=== PATIENT | female | born 1960 | race Caucasian/White ===

== ENCOUNTER 2016-10-27 07:52 | Day surgery (SDC) | payer OTHER ==
[2016-10-26 13:48] VITALS: BMI 35.4
[2016-10-27] MEDS ORDERED: PROPOFOL 20 ML ONE (09:28)
[2016-10-27 11:03] VITALS: TEMP 97.5
[2016-10-27 11:16] VITALS: PULSE 42
[2016-10-27 11:50] VITALS: BP 121/84
--- NOTE | 2016-10-28 13:49 | PATH ---
Surgical Pathology Report Patient Name: MELODY SANFORD [facility]. Rec. #: [id number] /Age/Gender: 1960 (Age: 56) / F Account: [id number] Location: ASU-ENDOSCOPY Taken: 10/27/2016 Received: 10/27/2016 Reported: 10/28/2016 Physicians: Godfrey Freire D.O. Specimen(s) Received A: TRANSVERSE COLON POLYP B: CECAL POLYP #1 C: BX CECAL POLYP #2 D: BX RECTAL POLYP Clinical History History of colon polyps Hemorrhoids, polyps, diverticulosis Final Diagnosis A. COLON, TRANSVERSE, POLYP, POLYPECTOMY: POLYPOID FRAGMENT OF COLONIC MUCOSA WITH SURFACE HYPERPLASTIC CHANGE AND CAUTERY ARTIFACT. B. COLON, CECUM, POLYP #1, POLYPECTOMY: FRAGMENTS OF TUBULAR ADENOMA. C. COLON, CECUM, POLYP #2, BIOPSY: POLYPOID FRAGMENT OF COLONIC MUCOSA WITH SURFACE HYPERPLASTIC CHANGE D. RECTUM, POLYP, BIOPSY: FRAGMENTS OF HYPERPLASTIC POLYP. Electronically Signed Nish Molina M.D. Gross Description A. Received in formalin, labeled "transverse colon polyp" is a fiore, irregular portion of soft tissue measuring 0.3 cm in greatest dimension. The specimen is submitted in toto in one cassette. B. Received in formalin, labeled "cecal polyp" are 4 fiore, irregular portions of soft tissue ranging from 0.1-0.3 cm in greatest dimension. The specimens are submitted in toto in one cassette. C. Received in formalin, labeled "biopsy cecal polyp #2" is a fiore, irregular portion of soft tissue measuring 0.5 cm in greatest dimension. The specimen is submitted in toto in one cassette. D. Received in formalin, labeled "rectal polyp biopsy" is a fiore, irregular portion of soft tissue measuring 0.4 cm in greatest dimension. The specimen is submitted in toto in one cassette. DL/10/27/2016 saudi/10/27/2016
== END 2016-10-27 11:50 | disposition home or self-care (01) ==
LOC: JASU-ENDO 07:52
PROVIDERS: ATTEND Internal Medicine Gastroenterology
PROC: 0DBN8ZX Excision of Sigmoid Colon, Via Natural or Artificial Opening Endoscopic, Diagnostic (ICD-10-PCS; 2016-10-27)
PROC: 0DBN8ZX Excision of Sigmoid Colon, Via Natural or Artificial Opening Endoscopic, Diagnostic (ICD-10-PCS; 2016-10-27)
PROC: 0DBP8ZX Excision of Rectum, Via Natural or Artificial Opening Endoscopic, Diagnostic (ICD-10-PCS; 2016-10-27)
PROC: 0DBL8ZX Excision of Transverse Colon, Via Natural or Artificial Opening Endoscopic, Diagnostic (ICD-10-PCS; principal; 2016-10-27 10:00)
DX: Z86.010 Personal history of colon polyps (principal); D12.0 Benign neoplasm of cecum; D12.3 Benign neoplasm of transverse colon; D12.8 Benign neoplasm of rectum
CPT/HCPCS: 88305-TC

== ENCOUNTER 2018-06-15 06:03 | Emergency (ER) | payer OTHER ==
--- NOTE | 2018-06-15 06:10 | PDOC ---
History of Present Illness - General Chief Complaint: Injury Stated Complaint: FELL 3 DAYS AGO INJURING HER KNEES AND LEFT CALF Time Seen by Provider: 06/15/18 06:09 - History of Present Illness Initial Comments: 06/15/18 06:22 This 57-year-old woman with a history of HTN/gastric ulcer/GERD presents with a history of fall. 3 days ago, patient fell through a broken wooden panel in her front porch. Right lower leg fell through the opening and left lower leg flexed at the knee. Patient had no impact of head/neck or upper body. No LOC. Patient was helped up by a neighbor. She states that she was at bed rest for the first day and then has been up and around for the last 2 days. She applied cold followed by warm compresses to the areas that were injured. She has taken acetaminophen as well as naproxen for her pain (patient states that her doctor is aware that she takes naproxen with food as needed). Patient states for the last day her pain has worsened. The patient is s/p right knee replacement 3 years ago. Patient is light smoker (3-4 cigarettes every few days); no history of DVT in the past; no recent surgery or malignancy Past History - Past Medical History Allergies/Adverse Reactions: Allergies Allergy/AdvReac Type Severity Reaction Status Date / Time peanut [Peanut] Allergy Severe Hives Verified 06/15/18 06:07 Home Medications: Ambulatory Orders Lisinopril [Prinivil] 20 mg PO DAILY #0 tablet 04/04/13 Omeprazole 40 mg PO ASDIR PRN 07/07/16 Tramadol HCl 50 mg PO Q6H PRN #15 tablet MDD 4 06/15/18 Anemia: No Asthma: No (QUESTIONABLE) Cancer: No Cardiac Disorders: No CVA: No COPD: No CHF: No Dementia: No Diabetes: No GI Disorders: Yes (H/O BLEEDING ULCER) Disorders: No HTN: Yes Hypercholesterolemia: No Liver Disease: No Seizures: No Thyroid Disease: No - Surgical History Abdominal Surgery: No Appendectomy: No Cardiac Surgery: No Cholecystectomy: No Lung Surgery: No Neurologic Surgery: No Orthopedic Surgery: Yes (RIGHT TOTAL KNEE REPLACEMENT) - Immunization History Td Vaccination: Yes Immunization Up to Date: Yes - Suicide/Smoking/Psychosocial Hx Smoking Status: Yes Smoking History: Current some day smoker Have you smoked in the past 12 months: Yes Number of Cigarettes Smoked Daily: 0 If you are a former smoker, when did you quit?: 2008 'Breaking Loose' booklet given: 04/03/13 Hx Alcohol Use: Yes (SOCIALLY) Drug/Substance Use Hx: No Substance Use Type: Alcohol Hx Substance Use Treatment: No Review of Systems - Review of Systems Able to Perform ROS?: Yes Comments:: 12 point review of systems is negative except for what is noted in the history of present illness *Physical Exam - Physical Exam Comments: GENERAL: Adult female, alert and oriented 3, in mild distress secondary to bilateral lower extremity pain HEAD: Normal with no signs of trauma. NECK:No tenderness or masses LUNGS: Breath sounds equal, clear to auscultation bilaterally. No wheezes, and no crackles. HEART:Regular rate and rhythm, normal S1 and S2 without murmur, rub or gallop. ABDOMEN:.normal bowel sounds No guarding,tenderness or rebound.No masses No distention. EXTREMITIES: Right lower [id number] vertical incision mid knee; mild tenderness anteriorly, no deformity or ligamentous instability Moderate tenderness lateral aspect of tib-fib joint line Moderate ecchymosis medially with marked tenderness of the right popliteal and posterior lower leg/calf distal extremity nontender/ nonedematous Left lower extremity-moderate tenderness anteriorly of knee; no ligamentous instability or deformity noted Mild tenderness of the calf without masses or palpable cords distal extremity nontender/ nonedematous Remainder of the extremity exam is normal NEUROLOGICAL: Cranial nerves II through XII grossly intact. Normal speech. No focal neurological deficits. Medical Decision Making - Medical Decision Making Right knee/right tib-fib/left knee x-rays performed. Preliminary reading by me: Calcification of the medial soft tissue distal femoral area has been present in previous x-ray studies. Otherwise, no fracture or dislocation present in any of the studies. Right knee hardware appears to be intact. Because of the patient's marked tenderness and edema of the right popliteal/ calf areas and left calf area, and relative risk factors(smoking/immobilization) , Doppler duplex vascular study will be performed Case signed out to Dr Mcmillan at change of shift *DC/Admit/Observation/Transfer Diagnosis at time of Disposition: Contusion - Discharge Dispostion Disposition: HOME Condition at time of disposition: Improved - Prescriptions Prescriptions: Tramadol HCl 50 mg PO Q6H PRN #15 tablet MDD 4 PRN Reason: Pain - Referrals Referrals: Natalio Grimm MD [Staff Physician] - - Patient Instructions Printed Discharge Instructions: Contusion Additional Instructions: you can take tramadol one every 6 hrs as needed for pain. follow up with an orthopedist. you can see your orthopedist or call to see Dr Grimm see referral information for phone number. return for any numnbess weakness or any concerns. you dopplerof your leg was negative for a blood clot. your xray are negative for any new fracture. - Post Discharge Activity
[2018-06-15 06:13] VITALS: TEMP 97.5; BMI 36.6
--- NOTE | 2018-06-15 09:01 | PDOC ---
*Physical Exam - Vital Signs Last Vital Signs Temp Pulse Resp BP Pulse Ox 97.5 F L 73 16 131/91 99 06/15/18 06:08 06/15/18 06:08 06/15/18 06:08 06/15/18 06:08 06/15/18 06:08 - Physical Exam General Appearance: Yes: Nourished Medical Decision Making - Medical Decision Making 06/15/18 08:55 57-year-old female history of hypertension and signed out to me by Dr. Knox. Patient has a fall through a deck had ecchymosis and swelling to her leg is awaiting Doppler results. The preliminary result from attack is negative however awaiting official radiology read likely discharge patient home has follow-up with orthopedist in [facility] given CD of her x-ray report. DC home with prescription for tramadol 06/15/18 09:13 d/w dr white negative for dvt. no fluid collection in area of brusing. *DC/Admit/Observation/Transfer Diagnosis at time of Disposition: Contusion - Discharge Dispostion Disposition: HOME Condition at time of disposition: Improved - Prescriptions Prescriptions: Tramadol HCl 50 mg PO Q6H PRN #15 tablet MDD 4 PRN Reason: Pain - Referrals Referrals: Natalio Grimm MD [Staff Physician] - - Patient Instructions Printed Discharge Instructions: Contusion Additional Instructions: you can take tramadol one every 6 hrs as needed for pain. follow up with an orthopedist. you can see your orthopedist or call to see Dr Grimm see referral information for phone number. return for any numnbess weakness or any concerns. you dopplerof your leg was negative for a blood clot. your xray are negative for any new fracture. - Post Discharge Activity
[2018-06-15 09:23] VITALS: BP 126/84; PULSE 78
== END 2018-06-15 09:22 | disposition home or self-care (01) ==
LOC: FER 06:03
DX: S80.01XA Contusion of right knee, initial encounter (principal); S80.02XA Contusion of left knee, initial encounter; W13.3XXA Fall through floor, initial encounter; Y93.89 Activity, other specified; Y92.008 Other place in unspecified non-institutional (private) residence as the place of occurrence of the external cause; F17.210 Nicotine dependence, cigarettes, uncomplicated; I10 Essential (primary) hypertension; Z96.651 Presence of right artificial knee joint
CPT/HCPCS: 73560-TC-LT-FY; 73560-TC-RT-FY; 73590-TC-RT-FY; 93971-TC; 99282-25

== ENCOUNTER 2018-10-26 11:58 | Emergency (ER) | payer OTHER ==
[2018-10-26 12:13] VITALS: BP 137/91; PULSE 71; TEMP 98.7; BMI 34.3
[2018-10-26] MEDS ORDERED: ASPIRIN 81 MG CHEWABLE TABLETS PO ONE (12:18)
--- NOTE | 2018-10-26 12:18 | PDOC ---
History of Present Illness - General Chief Complaint: Chest Pain Stated Complaint: CHEST PAIN TO RIGHT SHOULDER Time Seen by Provider: 10/26/18 12:11 History Source: Patient Exam Limitations: No Limitations Past History - Past Medical History Allergies/Adverse Reactions: Allergies Allergy/AdvReac Type Severity Reaction Status Date / Time peanut [Peanut] Allergy Severe Difficulty Verified 10/26/18 12:00 Breathing Home Medications: Ambulatory Orders Lisinopril 30 mg PO DAILY 10/26/18 Naproxen [Naprosyn] 500 mg PO PRN 10/26/18 Omeprazole 20 mg PO DAILY 10/26/18 Anemia: No Asthma: No (QUESTIONABLE) Cancer: No Cardiac Disorders: No CVA: No COPD: No CHF: No Dementia: No Diabetes: No GI Disorders: Yes (H/O BLEEDING ULCER) Disorders: No HTN: Yes Hypercholesterolemia: No Liver Disease: No Seizures: No Thyroid Disease: No - Surgical History Abdominal Surgery: No Appendectomy: No Cardiac Surgery: No Cholecystectomy: No Lung Surgery: No Neurologic Surgery: No Orthopedic Surgery: Yes (RIGHT TOTAL KNEE REPLACEMENT) - Immunization History Td Vaccination: Yes Immunization Up to Date: Yes - Suicide/Smoking/Psychosocial Hx Smoking Status: Yes Smoking History: Current some day smoker Have you smoked in the past 12 months: Yes Number of Cigarettes Smoked Daily: 0 If you are a former smoker, when did you quit?: 2008 'Breaking Loose' booklet given: 04/03/13 Hx Alcohol Use: Yes (SOCIALLY) Drug/Substance Use Hx: No Substance Use Type: Alcohol Hx Substance Use Treatment: No Cardiac Specific PMH - Complaint Specific PMHX Pacemaker: No *Physical Exam - Vital Signs Last Vital Signs Temp Pulse Resp BP Pulse Ox 98.7 F 71 16 137/91 98 10/26/18 11:59 10/26/18 11:59 10/26/18 11:59 10/26/18 11:59 10/26/18 11:59 - Physical Exam Comments: 10/26/18 16:32 awake alert lungs clear bilaterally heart rrr no mrg abd soft nt nd ext wwp no edema no calf tenderness. 2 + symmmetric pulses bilaterally. right lateral chest wall ttp. worse with arm abduction and flexion. ED Treatment Course - LABORATORY CBC & Chemistry Diagram: 10/26/18 12:28 10/26/18 12:28 - ADDITIONAL ORDERS Additional order review: Laboratory Results 10/26/18 10/26/18 12:28 12:28 Sodium 139 Potassium 4.0 Chloride 105 Carbon Dioxide 24 Anion Gap 10 BUN 15 Creatinine 0.7 Est GFR (CKD-EPI)AfAm 111.47 Est GFR (CKD-EPI)NonAf 96.18 Random Glucose 103 Calcium 9.1 Total Bilirubin 0.6 AST 19 ALT 20 Alkaline Phosphatase 71 Troponin I < 0.03 Total Protein 7.7 Albumin 3.9 10/26/18 12:28 RBC 4.47 MCV 99.6 H MCHC 32.6 RDW 12.9 MPV 8.1 Neutrophils % 58.8 Lymphocytes % 31.5 Monocytes % 8.6 Eosinophils % 0.6 Basophils % 0.5 - RADIOLOGY Radiology Studies Ordered: Category Date Time Status CHEST CTA [CT] Stat CT Scan 10/26/18 13:47 Completed CHEST PA & LAT [RAD] Stat Radiology 10/26/18 12:09 Completed - Medications Given in the ED: ED Medications Discontinued Medications Generic Name Dose Route Start Last Admin Trade Name Freq PRN Reason Stop Dose Admin Aspirin 162 mg 10/26/18 12:18 10/26/18 12:32 Asa - PO 10/26/18 12:19 162 mg ONCE ONE Administration Medical Decision Making - Medical Decision Making 10/26/18 12:12 58 yo f with h/o htn here with chest pain radiating across shoulders and to back. no nv no cough no f/c no sob. no leg swelling. no h/o pe or dvt. started last night. on exam unremarkable. normal heart and lung exam, no calf tenderness. differential acs, infection no risk factors for PE. plan labs cxr ekg aspirin. 10/26/18 12:17 10/26/18 16:28 pt cta negative. trop negative ekg normal. pain is somewhat reproducible and worse with movment. 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 states she has had a stress test 3 yrs ago. which was reportedly normal. fu with dr Ornelas [phone] *DC/Admit/Observation/Transfer Diagnosis at time of Disposition: Chest wall pain - Discharge Dispostion Disposition: HOME Condition at time of disposition: Improved - Referrals - Patient Instructions Printed Discharge Instructions: DI for Atypical Chest Pain Additional Instructions: you should follow up with your mine safety director call to schedule. also follow up with DR Ornelas, call to schedule. your test today are negative including heart enzymes x 2, and cat scan of your chest which is negative for a blood clot and basic blood work. It is likley that you strained your muscles in your chest wall based on your exam, however you still need to followup. return for any worsening symptoms, shortness of breath or any concerns. - Post Discharge Activity
[2018-10-26] MEDS ORDERED: ASPIRIN 81 MG CHEWABLE TABLETS ONE (12:31)
[2018-10-26 12:45] LABS: BASO % 0.5 % (0-2.0); EOS % 0.6 % (0-4.5); HEMATOCRIT 44.6 % (32.4-45.2); HEMOGLOBIN 14.5 GM/dl (10.7-15.3); LYMPH % 31.5 % (8-40); MCH 32.5 pg (25.7-33.7); MCHC 32.6 g/dl (32.0-36.0); MEAN CELL VOLUME 99.6 fl (80-96); MEAN PLT VOLUME 8.1 fl (7.5-11.1); MONO % 8.6 % (3.8-10.2); NEUT % 58.8 % (42.8-82.8); PLATELET COUNT 291 K/MM3 (134-434); RBC 4.47 M/mm3 (3.60-5.2); RDW 12.9 % (11.6-15.6); WHITE BLOOD COUNT 10.1 K/mm3 (4.0-10.8)
[2018-10-26 12:52] LABS: ALBUMIN 3.9 g/dl (3.4-5.0); BILIRUBIN,TOTAL 0.6 mg/dl (0.2-1); CALCIUM 9.1 mg/dl (8.5-10); CREATININE 0.7 mg/dl (0.55-1.3); TOT PROT 7.7 g/dl (6.4-8.2)
--- NOTE | 2018-10-26 15:21 | EKG ---
Test Reason : Blood Pressure : / mmHG Vent. Rate : 066 BPM Atrial Rate : 066 BPM P-R Int : 170 ms QRS Dur : 080 ms QT Int : 432 ms P-R-T Axes : 027 -18 010 degrees QTc Int : 452 ms NORMAL SINUS RHYTHM NORMAL ECG WHEN COMPARED WITH ECG OF 08-JUL-2011 09:52, NO SIGNIFICANT CHANGE WAS FOUND Confirmed by AURELIO HOOD, DIANA ([id number]) on 10/26/2018 3:20:41 PM Referred By: LEYDI TREVINO Confirmed By:DIANA CAREY MD
== END 2018-10-26 17:20 | disposition home or self-care (01) ==
LOC: FER 11:58
DX: R07.89 Other chest pain (principal); I10 Essential (primary) hypertension
CPT/HCPCS: 36415; 71046-TC-FY; 71275-TC; 80053; 84484; 85025; 93005; 99283-25

== ENCOUNTER 2021-01-20 14:48 | Emergency (ER) | payer OTHER ==
[2021-01-20 14:56] VITALS: BP 158/97; PULSE 77; TEMP 99.6; BMI 39.1
== END 2021-01-20 15:24 | disposition home or self-care (01) ==
LOC: FER 14:48
DX: L25.5 Unspecified contact dermatitis due to plants, except food (principal)
CPT/HCPCS: 99281-25

== ENCOUNTER 2022-01-04 16:25 | Emergency (ER) | payer OTHER ==
[2022-01-04] MEDS ORDERED: KETOROLAC TROMETHAMINE 30 MG/1 ML VIAL IM ONE (16:37)
[2022-01-04] MEDS ORDERED: KETOROLAC TROMETHAMINE 30 MG/1 ML VIAL ONE (16:49)
[2022-01-04 16:55] VITALS: BP 139/81; PULSE 77; RESP 20; TEMP 98.1; BMI 42.0
== END 2022-01-04 18:21 | disposition home or self-care (01) ==
LOC: FER 16:25
PROC: 3E0233Z Introduction of Anti-inflammatory into Muscle, Percutaneous Approach (ICD-10-PCS; principal; 2022-01-04)
DX: M43.6 Torticollis (principal)
CPT/HCPCS: 99284-25

== ENCOUNTER → 2022-01-04 | Emergency (ER) | payer OTHER ==
[2022-01-04 15:17] VITALS: BP 119/69; PULSE 102; RESP 16; TEMP 98.1; BMI 42.0
== END ==
LOC: JERFT 15:08
DX: M54.2 Cervicalgia (principal)
CPT/HCPCS: 99281-25

== ENCOUNTER 2023-02-18 10:07 | Emergency (ER) | payer OTHER ==
[2023-02-18 10:18] VITALS: BP 125/93; PULSE 80; RESP 20; TEMP 98.1; BMI 43.0
[2023-02-18] MEDS ORDERED: KETOROLAC TROMETHAMINE 30 MG/1 ML VIAL IM ONE (10:44)
[2023-02-18] MEDS ORDERED: KETOROLAC TROMETHAMINE 30 MG/1 ML VIAL ONE (10:49)
== END 2023-02-18 10:53 | disposition home or self-care (01) ==
LOC: FER 10:07
PROC: 3E0233Z Introduction of Anti-inflammatory into Muscle, Percutaneous Approach (ICD-10-PCS; principal; 2023-02-18)
DX: K64.4 Residual hemorrhoidal skin tags (principal); K59.00 Constipation, unspecified; M25.519 Pain in unspecified shoulder; G89.29 Other chronic pain
CPT/HCPCS: 99284-25

== ENCOUNTER 2024-02-15 04:47 | Day surgery (SDC) | payer OTHER ==
[2024-02-11 11:30] VITALS: BMI 43.9
[2024-02-15 08:50] VITALS: TEMP 98
[2024-02-15 09:25] VITALS: BP 114/76; PULSE 68; RESP 18
== END 2024-02-15 09:29 | disposition home or self-care (01) ==
LOC: JASU-ENDO 04:47
PROVIDERS: ATTEND Internal Medicine Gastroenterology
PROC: 0DBP8ZX Excision of Rectum, Via Natural or Artificial Opening Endoscopic, Diagnostic (ICD-10-PCS; 2024-02-15)
PROC: 0DBL8ZX Excision of Transverse Colon, Via Natural or Artificial Opening Endoscopic, Diagnostic (ICD-10-PCS; principal; 2024-02-15 08:00)
DX: Z12.11 Encounter for screening for malignant neoplasm of colon (principal); D12.3 Benign neoplasm of transverse colon; D12.8 Benign neoplasm of rectum; K64.8 Other hemorrhoids; K57.30 Diverticulosis of large intestine without perforation or abscess without bleeding; Z86.010 Personal history of colon polyps
CPT/HCPCS: 88305-TC